=== PATIENT | female | born 1960 | race Caucasian/White ===

== ENCOUNTER 2018-11-13 08:44 | Emergency (ER) | payer MEDICAID ==
[~2018-11-13] VITALS: Ht 154.9 cm; Wt 54.5 kg
[2018-11-13 10:25] LABS: BASOPHILS # (AUTO) 0.1 X10'3 (0-0.2); BASOPHILS % (AUTO) 1.4 % (0-1); EOSINOPHILS # (AUTO) 0.3 X10'3 (0-0.9); EOSINOPHILS % (AUTO) 5.7 % (0-6); HEMATOCRIT 40.3 % (35.0-45.0); HEMOGLOBIN 13.5 g/dl (12.0-16.0); LYMPHOCYTES # (AUTO) 1.6 X10'3 (1.1-4.8); LYMPHOCYTES % (AUTO) 33.3 % (21-51); MEAN CORPUSCULAR HEMOGLOBIN 30.7 PG (27.0-31.0); MEAN CORPUSCULAR HGB CONC 33.5 g/dL (33.0-36.5); MEAN CORPUSCULAR VOLUME 91.8 FL (78-98); MONOCYTES # (AUTO) 0.4 X10'3 (0-0.9); MONOCYTES % (AUTO) 7.9 % (2-12); NEUTROPHILS # (AUTO) 2.4 X10'3 (1.8-7.7); NEUTROPHILS % (AUTO) 51.7 % (42-75); PLATELET COUNT 292 X10'3 (140-440); RED BLOOD COUNT 4.39 X10'6 (4.20-5.60); RED CELL DISTRIBUTION WIDTH 12.8 % (11.5-14.5); WHITE BLOOD COUNT 4.7 X10'3 (4.5-11.0)
[2018-11-13 10:39] LABS: ALANINE AMINOTRANSFERASE 105 U/L (12-78); ALBUMIN 3.5 G/DL (3.4-5.0); ALBUMIN/GLOBULIN RATIO 1.2 (1.1-1.5); ALKALINE PHOSPHATASE 83 IU/L (46-116); ANION GAP 4 (8-16); ASPARTATE AMINO TRANSFERASE 52 U/L (10-37); BILIRUBIN,TOTAL 0.4 MG/DL (0.1-1.0); BLOOD UREA NITROGEN 20 MG/DL (7-18); BUN/CREATININE RATIO 21.1 (6.6-38.0); CALCIUM 8.7 MG/DL (8.5-10.1); CHLORIDE 109 MMOL/L (99-107); CREATININE 0.95 MG/DL (0.40-0.90); GLUCOSE 107 MG/DL (70-104); SODIUM 140 MMOL/L (135-145); TOTAL CARBON DIOXIDE 27.2 MMOL/L (24-32); TOTAL PROTEIN 6.5 G/DL (6.4-8.2); eGFR 60 ML/MIN
[2018-11-13 11:17] VITALS: BP 164/82
== END 2018-11-13 11:19 | disposition home or self-care (01) ==
LOC: ER 08:44
DX: R47.81 Slurred speech (principal); F12.90 Cannabis use, unspecified, uncomplicated; Z56.0 Unemployment, unspecified; Z98.890 Other specified postprocedural states; Z88.0 Allergy status to penicillin
CPT/HCPCS: 36415; 70450; 80053; 85025; 99284

== ENCOUNTER 2021-11-07 08:30 | Day surgery (SDC) | payer MEDICAID ==
[~2021-11-07] VITALS: Ht 154.9 cm; Wt 44.5 kg
[2021-11-07 08:45] VITALS: BP 143/90
[2021-11-07] MEDS ORDERED: FLUO-167 PO (08:45)
[2021-11-07] MEDS ORDERED: diphenhydrAMINE 50 mg/ml inj ONE (09:00)
[2021-11-07] MEDS ORDERED: LIDOcaine Viscous 15ml cup ONE (09:00)
[2021-11-07] MEDS ORDERED: fentaNYL/PF 50MCG/1 ML 2ML syringe ONE (09:00)
[2021-11-07] MEDS ORDERED: MIDAZolam 1 MG/ML 5ML VIAL ONE (09:00)
[2021-11-07 09:51] VITALS: BP 157/104
[2021-11-07 10:01] VITALS: BP 139/86
[2021-11-07 10:11] VITALS: BP 140/90
[2021-11-07 10:21] VITALS: BP 142/90
== END 2021-11-07 11:10 | disposition home or self-care (01) ==
LOC: GI LAB 08:30
PROVIDERS: ATTEND Internal Medicine Gastroenterology
DX: R13.10 Dysphagia, unspecified (principal); K29.70 Gastritis, unspecified, without bleeding; K31.89 Other diseases of stomach and duodenum; Z79.899 Other long term (current) drug therapy; Z98.890 Other specified postprocedural states
CPT/HCPCS: 43239; 43246; B4087; J1200; J2250; J3010; J7030; Z7512; 99152; 99153; A4620

== ENCOUNTER 2022-01-26 11:14 | Day surgery (SDC) | payer MEDICAID ==
[~2022-01-26] VITALS: Ht 154.9 cm; Wt 42.0 kg
[~2022-01-26 11:14] MED LIST: FLUO-167 PO
[2022-01-26] MEDS ORDERED: normal saline 1000ml 1,000 ML IV PRN (11:30)
[2022-01-26 12:12] VITALS: BP 127/81
[2022-01-26] MEDS ORDERED: BACL-11 PO (12:24)
[2022-01-26] MEDS ORDERED: AMIT25TA10 PO (12:24)
[2022-01-26] MEDS ORDERED: ALPR-623 PO (12:24)
[2022-01-26] MEDS ORDERED: RILU50TA3 PO (12:24)
[2022-01-26] MEDS ORDERED: FLUO20CA39 PO (12:24)
== END 2022-01-26 12:55 | disposition home or self-care (01) ==
LOC: SSTAY O 11:14
PROVIDERS: ATTEND Radiology Diagnostic Radiology
DX: G12.21 Amyotrophic lateral sclerosis (principal); R13.10 Dysphagia, unspecified; F48.2 Pseudobulbar affect; F32.9 Major depressive disorder, single episode, unspecified; K11.7 Disturbances of salivary secretion; Z79.899 Other long term (current) drug therapy; Z98.890 Other specified postprocedural states; Z88.0 Allergy status to penicillin
CPT/HCPCS: 74018; B4087

== ENCOUNTER 2022-02-16 11:46 | Inpatient (IN) | payer MEDICAID ==
[~2022-02-16] VITALS: Ht 154.9 cm; Wt 49.4 kg
[~2022-02-16 11:46] MED LIST changes: +ALPR-623 PO; +AMIT25TA10 PO; +BACL-11 PO; -FLUO-167 PO; +FLUO20CA39 PO; +RILU50TA3 PO
[2022-02-16 14:04] LABS: BASOPHILS % (AUTO) 0.1 % (0-1); EOSINOPHILS % (AUTO) 0.2 % (0-6); HEMATOCRIT 36.7 % (35.0-45.0); HEMOGLOBIN 12.2 g/dl (12.0-16.0); LYMPHOCYTES # (AUTO) 0.8 X10'3 (1.1-4.8); LYMPHOCYTES % (AUTO) 9.3 % (21-51); MEAN CORPUSCULAR HGB CONC 33.3 g/dL (33.0-36.5); MEAN PLATELET VOLUME 8.8 FL (7.4-10.4); MONOCYTES # (AUTO) 0.4 X10'3 (0-0.9); MONOCYTES % (AUTO) 5.4 % (2-12); NEUTROPHILS # (AUTO) 6.9 X10'3 (1.8-7.7); PLATELET COUNT 229 X10'3 (140-440); RED BLOOD COUNT 3.94 X10'6 (4.20-5.60); RED CELL DISTRIBUTION WIDTH 12.9 % (11.5-14.5); WHITE BLOOD COUNT 8.1 X10'3 (4.5-11.0)
[2022-02-16 14:08] LABS: ABG HCO3 32.4 mmol/L (22.0-26.0); ABG OXYGEN SATURATION 99.3 % (94-97); ABG PCO2 (T) 74.6 mmHg (32.0-45.0); ABG PO2 (T) 153.3 mmHg (75.0-100.0); ALLEN'S TEST POSITIVE; FCOHb 1.9 % (0.0-3.9); FLOW 4 L/min; FMetHb 0.3 % (0.0-1.5); FO2Hb 97.1 % (94-97); PATIENT TEMPERATURE 36.6; TOTAL HEMOGLOBIN 12.6 G/dl (12.0-16.0)
[2022-02-16 14:14] LABS: CLARITY,URINE SLIGHTLY CLOUDY (Clear); COLOR,URINE YELLOW (Yellow); GLUCOSE, URINE NEGATIVE (Neg); KETONES,URINE NEGATIVE (Neg); LEUKOCYTE ESTERASE ,URINE NEGATIVE (Neg); NITRITES, URINE NEGATIVE (Neg); OCCULT BLOOD,URINE NEGATIVE (Neg); PROTEIN,URINE NEGATIVE (Neg); UROBILINOGEN,URINE 0.2 E.U/dL (0.2-1.0)
[2022-02-16 14:15] LABS: UA COLLECTION TYPE STRAIGHT CATH
[2022-02-16 14:21] LABS: BACTERIA,URINE FEW /HPF (Neg); RBC,URINE NONE SEEN /HPF (0-2); SQUAMOUS EPITHELIAL CELL,UR NONE SEEN /LPF (FEW); WBC,URINE NONE SEEN /HPF (0-4)
[2022-02-16 14:22] LABS: AMORPHOUS URATES 1+; MUCUS STRANDS FEW /LPF (Neg)
[2022-02-16 15:01] LABS: ALANINE AMINOTRANSFERASE 204 U/L (12-78); ALBUMIN 3.6 G/DL (3.4-5.0); ALBUMIN/GLOBULIN RATIO 1.2 (1.1-1.5); ALKALINE PHOSPHATASE 78 IU/L (46-116); ANION GAP -1 (8-16); ASPARTATE AMINO TRANSFERASE 55 U/L (10-37); BILIRUBIN,TOTAL 0.5 MG/DL (0.1-1.0); BLOOD UREA NITROGEN 12 MG/DL (7-18); BUN/CREATININE RATIO 29.3 (6.6-38.0); CALCIUM 8.8 MG/DL (8.5-10.1); CHLORIDE 88 MMOL/L (99-107); CREATININE 0.41 MG/DL (0.40-0.90); GLUCOSE 111 MG/DL (70-104); POTASSIUM 4.8 MMOL/L (3.5-5.1); SODIUM 126 MMOL/L (135-145); TOTAL CARBON DIOXIDE 38.5 MMOL/L (24-32); TOTAL PROTEIN 6.6 G/DL (6.4-8.2); eGFR > 90 ML/MIN
[2022-02-16] MEDS ORDERED: LORazepam 2 mg/ml vial IV ONE (15:05)
[2022-02-16 17:16] LABS: ABG BASE EXCESS 11.3 mmol/L (-2.0-2.0); ABG OXYGEN SATURATION 90.8 % (94-97); ABG PCO2 (T) 67.7 mmHg (32.0-45.0); ABG PO2 (T) 58.4 mmHg (75.0-100.0); ALLEN'S TEST POSITIVE; FCOHb 1.7 % (0.0-3.9); FMetHb 0.3 % (0.0-1.5); RESPIRATORY RATE 12 b/min; TIDAL VOLUME 397 mL; TOTAL HEMOGLOBIN 12.2 G/dl (12.0-16.0)
[2022-02-16 18:37] LABS: OSMOLALITY 271 MOSM/K (280-300)
[2022-02-16] MEDS ORDERED: SOD1POWD PO (18:53)
[2022-02-16 18:58] LABS: ABG BASE EXCESS 8.2 mmol/L (-2.0-2.0); ABG HCO3 34.4 mmol/L (22.0-26.0); ABG OXYGEN SATURATION 94.6 % (94-97); ABG PCO2 (T) 55.3 mmHg (32.0-45.0); ABG PO2 (T) 69.9 mmHg (75.0-100.0); ALLEN'S TEST POSITIVE; FCOHb 2.1 % (0.0-3.9); FMetHb 0.3 % (0.0-1.5); FO2Hb 92.3 % (94-97); PATIENT TEMPERATURE 37.1; RESPIRATORY RATE 16 b/min
[2022-02-16] MEDS ORDERED: temazepam 15mg capsule PO PRN (21:00)
[2022-02-16] MEDS: normal saline 1000ml 1,000 ML IV SCH (21:50)
[2022-02-16] MEDS ORDERED: diphenhydrAMINE 25mg capsule PO PRN (21:50)
[2022-02-16] MEDS ORDERED: ondansetron/PF 4mg/2ml inj IV PRN (21:50)
[2022-02-16] MEDS ORDERED: acetaminophen 325mg tablet PO PRN ×2 (21:50)
[2022-02-16] MEDS ORDERED: ipratropium/albuterol 3ml nebule NEB PRN (21:50)
[2022-02-16] MEDS ORDERED: bisacodyl 10mg suppository rectal RC PRN (21:50)
[2022-02-16] MEDS ORDERED: ondansetron 4mg rapidly disintigrating tab PO PRN (21:50)
[2022-02-16] MEDS ORDERED: magnesium hydroxide 30ml (MOM) UD suspension PO PRN (21:50)
[2022-02-16] MEDS ORDERED: diphenhydrAMINE 50 mg/ml inj IV PRN (21:50)
[2022-02-16] MEDS ORDERED: mag hydrox/Alum hydrox/simeth 30ml oral suspension PO PRN (21:50)
[2022-02-16] MEDS ORDERED: HYDROcodone/acetaminophen 5mg/325mg tablet PO PRN (21:50)
[2022-02-16] MEDS ORDERED: morphine 2 MG/ML inj. syringe IV PRN (21:50)
[2022-02-16] MEDS ORDERED: acetaminophen 650mg rectal suppository RC PRN (21:50)
[2022-02-16] MEDS ORDERED: metoclopramide 5 mg/ml inj IV PRN (21:50)
--- NOTE | 2022-02-16 22:17 | NUR ---
ORDERED A TELE NEUROLOGY CONSULT, CONSULT INITIATED
[2022-02-16 22:28] LABS: HEMOGLOBIN A1C 5.4 % (4.5-6.2)
[2022-02-16 22:34] LABS: CREATINE KINASE 223 U/L (26-192); LIPASE 345 U/L (73-393); MAGNESIUM 1.9 MG/DL (1.5-2.4); PHOSPHORUS 4.6 MG/DL (2.3-4.5)
[2022-02-16 23:04] LABS: URINE AMPHETAMINE SCREEN NEGATIVE (Neg); URINE BARBITUATE SCREEN NEGATIVE (Neg); URINE BENZODIAZEPINES SCREEN POSITIVE (Neg); URINE CANNABINOID SCREEN POSITIVE (Neg); URINE COCAINE SCREEN NEGATIVE (Neg); URINE METHADONE SCREEN NEGATIVE (Neg); URINE OPIATE SCREEN POSITIVE (Neg); URINE PHENCYCLIDINE SCREEN NEGATIVE (Neg)
[2022-02-16 23:16] LABS: APTT 27 SECONDS (22-32)
--- NOTE | 2022-02-16 23:49 | NUR ---
PT AND FAMILY TALKED WITH TELE-NEUROLOGIST, NO NEW ORDERS OR PLAN OF CARE. NEUROLOGIST ENCOURAGED CONTINUED USE OF BIPAP
--- NOTE | 2022-02-17 02:08 | NUR ---
PT REFUSED TO KEEP BIPAP ON, NOTIFIED AND SAID IT IS OKAY FOR HER TO HAVE IT OFF
[2022-02-17] MEDS ORDERED: ALPRAZolam 0.25mg tablet PO ONE (03:15)
[2022-02-17] MEDS ORDERED: baclofen 10mg tablet PO PRN (03:15)
[2022-02-17 04:35] LABS: BASOPHILS # (AUTO) 0.1 X10'3 (0-0.2); BASOPHILS % (AUTO) 1.1 % (0-1); EOSINOPHILS % (AUTO) 0.2 % (0-6); HEMATOCRIT 36.8 % (35.0-45.0); LYMPHOCYTES # (AUTO) 0.9 X10'3 (1.1-4.8); LYMPHOCYTES % (AUTO) 19.1 % (21-51); MEAN CORPUSCULAR HEMOGLOBIN 30.4 PG (27.0-31.0); MEAN CORPUSCULAR HGB CONC 32.7 g/dL (33.0-36.5); MEAN PLATELET VOLUME 8.8 FL (7.4-10.4); MONOCYTES # (AUTO) 0.3 X10'3 (0-0.9); MONOCYTES % (AUTO) 7.3 % (2-12); NEUTROPHILS # (AUTO) 3.5 X10'3 (1.8-7.7); NEUTROPHILS % (AUTO) 72.3 % (42-75); PLATELET COUNT 225 X10'3 (140-440); RED BLOOD COUNT 3.95 X10'6 (4.20-5.60); RED CELL DISTRIBUTION WIDTH 13.1 % (11.5-14.5); WHITE BLOOD COUNT 4.8 X10'3 (4.5-11.0)
[2022-02-17 04:58] LABS: ALANINE AMINOTRANSFERASE 177 U/L (12-78); ALBUMIN 3.3 G/DL (3.4-5.0); ALKALINE PHOSPHATASE 83 IU/L (46-116); ANION GAP 1 (8-16); ASPARTATE AMINO TRANSFERASE 43 U/L (10-37); BILIRUBIN,TOTAL 0.4 MG/DL (0.1-1.0); BLOOD UREA NITROGEN 13 MG/DL (7-18); CALCIUM 8.9 MG/DL (8.5-10.1); CHLORIDE 93 MMOL/L (99-107); CHOL/HDL RATIO 2.2 (0.00-4.99); CHOLESTEROL 191 MG/DL (0-200); GLUCOSE 92 MG/DL (70-104); HDL CHOLESTEROL 85 MG/DL (35-60); LDL CHOLESTEROL 89 MG/DL (50-100); POTASSIUM 4.4 MMOL/L (3.5-5.1); SODIUM 133 MMOL/L (135-145); TOTAL CARBON DIOXIDE 38.7 MMOL/L (24-32); TOTAL PROTEIN 6.5 G/DL (6.4-8.2); TRIGLYCERIDES 64 MG/DL (20-135); eGFR > 90 ML/MIN
[2022-02-17] MEDS ORDERED: LORazepam 2 mg/ml vial IV PRN (05:40)
[2022-02-17 05:59] LABS: ABG BASE EXCESS 10.2 mmol/L (-2.0-2.0); ABG HCO3 40.3 mmol/L (22.0-26.0); ABG PCO2 (T) 87.5 mmHg (32.0-45.0); ABG PO2 (T) 111.3 mmHg (75.0-100.0); ALLEN'S TEST POSITIVE; FCOHb 1.5 % (0.0-3.9); FLOW 4 L/min; FMetHb 0.3 % (0.0-1.5); FO2Hb 96.2 % (94-97); TOTAL HEMOGLOBIN 12.8 G/dl (12.0-16.0)
[2022-02-17] MEDS ORDERED: pantoprazole 40mg Tablet.DR PO SCH (07:30)
[2022-02-17] MEDS ORDERED: FLUoxetine 20mg capsule PO SCH (08:00)
[2022-02-17] MEDS ORDERED: [UNRECOGNIZED DRUG - OTHER] PO SCH (08:00)
[2022-02-17] MEDS ORDERED: RILUZOLE PO SCH (08:00)
[2022-02-17] MEDS ORDERED: docusate sod 100mg capsule PO SCH (08:00)
--- NOTE | 2022-02-17 09:55 | NUR ---
MED WAIT PER G TUBE ADAPTER. PT FAMILY TO BRING IT IN.
[2022-02-17] MEDS: normal saline 1000ml 1,000 ML IV SCH ×2 (10:14→20:01)
[2022-02-17] MEDS: heparin, porcine 5000 units/ml vial SQ SCH ×2 (10:47→20:00)
[2022-02-17] MEDS ORDERED: potassium Cl 20 mEq SR tablet PO PRN ×2 (11:10)
[2022-02-17] MEDS ORDERED: magnesium Cl slow-release 64mg tablet PO PRN (11:10)
[2022-02-17] MEDS ORDERED: magnesium 4gm in 100ml NS 100 ML IV PRN (11:10)
[2022-02-17] MEDS ORDERED: potassium Cl 40MEQ/1/2NS 520ml 520 ML IV PRN (11:10)
[2022-02-17] MEDS ORDERED: ALPRAZolam 0.25mg tablet PO PRN (11:20)
[2022-02-17] MEDS ORDERED: LORazepam 2 mg/ml vial IV STA (11:39)
[2022-02-17 12:51] LABS: ABG HCO3 32.1 mmol/L (22.0-26.0); ABG OXYGEN SATURATION 89.5 % (94-97); ABG PO2 (T) 57.3 mmHg (75.0-100.0); ALLEN'S TEST POSITIVE; FCOHb 1.8 % (0.0-3.9); FLOW 1 L/min; FMetHb 0.3 % (0.0-1.5); FO2Hb 87.6 % (94-97); TOTAL HEMOGLOBIN 12.7 G/dl (12.0-16.0)
--- NOTE | 2022-02-17 13:54 | NUR ---
HELD HOME MEDICATION DUE TO MEDICATION TO BE ADMINISTERED ON EMPTY STOMACHE.
--- NOTE | 2022-02-17 14:50 | NUR ---
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 Pt family seen by RD at bedside; per family pt receives Isosource 1.5 initially 4 now 5 cartons/day w/ 8oz free water before and after each feed in addition to between meals. Pt family reports additional powdered veggies/fruit and beet root supplements provided to pt between meals despite meeting 100% micronutrient meeds w/ current EN regimen. Pt serum Na 126 on admit likely from excessive free water regimen w/ EN at home. Bolus TF recs below given current formulary in addition to home EN bolus recs using pt current home formulary. Home bolus TF recs placed in pt chart; to be titrated as needed by outpatient RD. Pt family also reports pt is able to take PO at times at home; is agreeable to RESEARCH EDITOR BSS this admit; MD notified. Will monitor for TF tolerance and further nutrition intervention needs this admit. Rec: 1. Bolus GTF per MD using Jevity 1.2 300ml goal bolus QID at 7am, 11am, 3pm, and 7pm. Initiate at 300ml goal bolus given home TF regimen. To provide 1200ml volume/day, 1440 kcals, 968ml water, and 67g protein. 2. additional water flush 60ml before and after each bolus; monitor serum Na 3. advance to regular diet as medically indicated per RESEARCH EDITOR recs 4. PALB Q /; scaled wt this admit w/ subsequent daily wts 5. monitor for TF tolerance and adjustment needs as medically indicated 6. bowel care per rx HOME BOLUS TF RECS 1. Bolus GTF using Isosource 1.5 or equivalent 250ml bolus QID at 7am, 11am, 3pm, and 7pm. Would provide 1000ml volume/day, 1500 kcals, 764ml water, and 68g protein. 2. additional water flush 100ml before and after each bolus 3. outpatient RD to titrate formula, frequency, and free water as medically indicated based on pt needs Addendum: 02/17/22 at [address] Amended: Links added.
[2022-02-17] MEDS ORDERED: acetaminophen 325mg tablet GT PRN ×2 (15:57)
[2022-02-17] MEDS ORDERED: acetaminophen 325mg tablet OGT PRN ×2 (15:58→15:59)
[2022-02-17] MEDS ORDERED: baclofen 10mg tablet OGT PRN (15:59)
[2022-02-17] MEDS ORDERED: SOD PHENYLBUTYRAT OGT SCH (16:02)
[2022-02-17] MEDS ORDERED: [UNRECOGNIZED DRUG - OTHER] OGT SCH (16:02)
[2022-02-17] MEDS ORDERED: ondansetron 4mg rapidly disintigrating tab OGT PRN (16:03)
[2022-02-17] MEDS ORDERED: potassium Cl 20 mEq SR tablet OGT PRN ×2 (16:05)
[2022-02-17] MEDS ORDERED: diphenhydrAMINE 25 MG/10 ML UD oral solution OGT PRN (16:05)
[2022-02-17] MEDS ORDERED: temazepam 15mg capsule OGT PRN (16:05)
[2022-02-17] MEDS ORDERED: magnesium hydroxide 30ml (MOM) UD suspension OGT PRN (16:06)
--- NOTE | 2022-02-17 16:34 | NUR ---
I received ED report from RN
[2022-02-17] MEDS: LORazepam 2 mg/ml vial IV PRN (16:37)
[2022-02-17 17:30] VITALS: BP 145/79
[2022-02-17] MEDS: K and/or MAG REPLACEMENT MC SCH (19:20)
[2022-02-17] MEDS: docusate sodium 100mg/10ml UD cup OGT SCH (20:00)
[2022-02-17] MEDS ORDERED: amitriptyline 50mg tablet OGT SCH (21:00)
[2022-02-17 22:00] VITALS: BP 122/77
[2022-02-18] MEDS: RILUZOLE 50 MG OGT SCH ×2 (01:03→08:45)
[2022-02-18] MEDS: LORazepam 2 mg/ml vial IV PRN (01:52)
[2022-02-18 02:00] VITALS: BP 140/84
--- NOTE | 2022-02-18 02:07 | NUR ---
given Restoril 15 mg via tube feeding at 20:30 PM on 02/17/2022 but unable to be saved it
[2022-02-18 06:00] VITALS: BP 132/80
[2022-02-18 07:21] LABS: ALANINE AMINOTRANSFERASE 140 U/L (12-78); ALKALINE PHOSPHATASE 83 IU/L (46-116); ANION GAP 0 (8-16); ASPARTATE AMINO TRANSFERASE 43 U/L (10-37); BILIRUBIN,TOTAL 0.4 MG/DL (0.1-1.0); BLOOD UREA NITROGEN 11 MG/DL (7-18); BUN/CREATININE RATIO 23.4 (6.6-38.0); CALCIUM 8.9 MG/DL (8.5-10.1); CHLORIDE 101 MMOL/L (99-107); CREATININE 0.47 MG/DL (0.40-0.90); GLUCOSE 82 MG/DL (70-104); PHOSPHORUS 1.8 MG/DL (2.3-4.5); POTASSIUM 3.9 MMOL/L (3.5-5.1); SODIUM 138 MMOL/L (135-145); TOTAL CARBON DIOXIDE 36.7 MMOL/L (24-32); TOTAL PROTEIN 6.1 G/DL (6.4-8.2); eGFR > 90 ML/MIN
[2022-02-18 07:22] LABS: BASOPHILS % (AUTO) 0.2 % (0-1); EOSINOPHILS % (AUTO) 0.1 % (0-6); HEMATOCRIT 35.1 % (35.0-45.0); HEMOGLOBIN 11.4 g/dl (12.0-16.0); LYMPHOCYTES # (AUTO) 0.8 X10'3 (1.1-4.8); LYMPHOCYTES % (AUTO) 13.4 % (21-51); MEAN CORPUSCULAR HEMOGLOBIN 30.6 PG (27.0-31.0); MEAN CORPUSCULAR HGB CONC 32.3 g/dL (33.0-36.5); MEAN CORPUSCULAR VOLUME 94.5 FL (78-98); MEAN PLATELET VOLUME 8.6 FL (7.4-10.4); MONOCYTES # (AUTO) 0.6 X10'3 (0-0.9); MONOCYTES % (AUTO) 9.4 % (2-12); NEUTROPHILS # (AUTO) 4.6 X10'3 (1.8-7.7); NEUTROPHILS % (AUTO) 76.9 % (42-75); PLATELET COUNT 188 X10'3 (140-440); RED BLOOD COUNT 3.71 X10'6 (4.20-5.60); RED CELL DISTRIBUTION WIDTH 13.5 % (11.5-14.5); WHITE BLOOD COUNT 5.9 X10'3 (4.5-11.0)
[2022-02-18] MEDS ORDERED: lansoprazole 15mg solutab OGT SCH (07:30)
[2022-02-18] MEDS ORDERED: fluoxetine 20mg/5ml UD cup OGT SCH (08:00)
[2022-02-18] MEDS: K and/or MAG REPLACEMENT MC SCH (08:00)
[2022-02-18] MEDS: docusate sodium 100mg/10ml UD cup OGT SCH (08:46)
[2022-02-18] MEDS: heparin, porcine 5000 units/ml vial SQ SCH (08:47)
[2022-02-18] MEDS: normal saline 1000ml 1,000 ML IV SCH (09:21)
[2022-02-18] MEDS: ALPRAZolam 0.25mg tablet OGT PRN ×2 (09:41→18:12)
--- NOTE | 2022-02-18 10:12 | NUR ---
Page Accepted Message: [phone] devan, pt sister wants some popsicles i guess she eats this at home, but she is npo and tube feed. please let me know. tamiko [phone]
[2022-02-18 11:00] VITALS: BP 161/94
--- NOTE | 2022-02-18 12:26 | NUR ---
dr verma is aware of pt vitals, notified at bedside.
[2022-02-18] MEDS ORDERED: amLODIPine 5mg tablet PO SCH (13:25)
[2022-02-18] MEDS ORDERED: SOD PHENYLBUTYRAT OGT ONE (14:55)
[2022-02-18] MEDS ORDERED: [UNRECOGNIZED DRUG - OTHER] OGT ONE (14:55)
[2022-02-18 15:50] VITALS: BP 135/79
--- NOTE | 2022-02-18 15:56 | NUR ---
pt is sleeping and per rt ok to be on bipap while sleeping at night and during the day. 97 % O2
--- NOTE | 2022-02-18 18:47 | NUR ---
Page Accepted Message: [id number] reba Martines is going AMA sister is taking her home. please call asap. morrison [phone]
--- NOTE | 2022-02-18 19:06 | NUR ---
pt had stated earlier today to dr verma that she had wanted to go home, the sister stated shed like the pt to stay another day. the pt was fine after that but then started to have increased anxiety over being here towards end of shift. she had typed on her phone that she wanted some xanax again. i gave this. dr verma called back about pt leaving AMA and said 'if she wants to go she can she is fully aware'. this pt is a/o x3 to 4, she knows what is going on her ALS disease just hinders her speaking, but she was able to use her cellphone to type messages and ask fro things like her Xanax. i asked the pt if she wanted to go home and she nodded yes and said yes. she signed her own AMA form and was ready to go starting to get to side of the bed to leave. I DC the IV and took off the tele. pt family took all the belongings with her. the pt took her meds from pharmacy home with her. she was wheeled down to the lobby by family member and left AMA. AMA form is in chart and occurrence report will be done. Addendum: 02/18/22 at 1926 by Danna Reed RN pt had stated earlier today to dr verma that she had wanted to go home, the sister stated shed like the pt to stay another day. the pt was fine after that but then started to have increased anxiety over being here towards end of shift. she had typed on her phone that she wanted some xanax again. i gave this. dr verma called back about pt leaving AMA and said 'if she wants to go she can she is fully aware'. this pt is a/o x3 to 4, she knows what is going on her ALS disease just hinders her speaking, but she was able to use her cellphone to type messages and ask fro things like her Xanax. i asked the pt if she wanted to go home and she nodded yes and said yes. she signed her own AMA form and was ready to go starting to get to side of the bed to leave. I DC the IV and took off the tele. pt family took all the belongings with her. the pt took her meds from pharmacy home with her. she was wheeled down to the lobby by family member and left AMA. AMA form is in chart and occurrence report will be done. charge nurse and water treatment plant supervisor are aware.
== END 2022-02-18 19:11 | disposition left against medical advice (07) | DRG 133 ==
LOC: ER 11:47 → ED HOLD 21:56 → PCU 3S 02-17 17:07
PROVIDERS: ADMIT Family Medicine; ATTEND Family Medicine
PROC: 5A09357 Assistance with Respiratory Ventilation, Less than 24 Consecutive Hours, Continuous Positive Airway Pressure (ICD-10-PCS; principal; 2022-02-16)
PROC: 5A09357 Assistance with Respiratory Ventilation, Less than 24 Consecutive Hours, Continuous Positive Airway Pressure (ICD-10-PCS; 2022-02-18)
DX: J96.22 Acute and chronic respiratory failure with hypercapnia (principal); G12.21 Amyotrophic lateral sclerosis; E87.29 Other acidosis; E87.1 Hypo-osmolality and hyponatremia; R74.01 Elevation of levels of liver transaminase levels; F12.90 Cannabis use, unspecified, uncomplicated; Z53.29 Procedure and treatment not carried out because of patient's decision for other reasons; R47.9 Unspecified speech disturbances; E83.42 Hypomagnesemia; K76.9 Liver disease, unspecified; J96.21 Acute and chronic respiratory failure with hypoxia; F17.210 Nicotine dependence, cigarettes, uncomplicated; I10 Essential (primary) hypertension; R13.10 Dysphagia, unspecified; Z56.0 Unemployment, unspecified; Z93.1 Gastrostomy status; Z99.81 Dependence on supplemental oxygen; Z88.0 Allergy status to penicillin; Z79.899 Other long term (current) drug therapy
CPT/HCPCS: 36415; 36600; 70450; 71045; 80053; 80061; 80305; 81001; 82550; 82570; 82803; 82948; 83036; 83605; 83690; 83735; 83880; 83930; 83935; 84100; 84133; 84145; 84300; 84443; 84484; 85018; 85025; 85610; 85730; 93005; 93306; 94660; 94760; 96374; 97116; 97161; 97530; 99285; G0378; J1644; J2060; J7030